=== PATIENT | male | born 1990 | race Two or more races ===

== ENCOUNTER 2021-02-04 13:14 | Emergency (ER) | payer MEDICAID ==
[~2021-02-04] VITALS: Ht 172.7 cm; Wt 104.5 kg
[2021-02-04] MEDS: IBUPROFEN 600 MG TABLET PO ONE (16:01)
[2021-02-04] MEDS: COLCHICINE 0.6 MG TABLET PO ONE (16:01)
[2021-02-04] MEDS: POVIDONE-IODINE 10% 120 ML SOLUTION TP ONE (16:02)
[2021-02-04] MEDS: BUPIVACAINE HCL/PF 0.25% 10 ML VIAL SQ ONE (16:02)
[2021-02-04 16:07] LABS: BASOPHILS % (AUTO) 1.1 % (0.0-2.0); EOSINOPHILS % (AUTO) 0.6 % (1.0-6.0); HEMATOCRIT 40.5 % (41-53); HEMOGLOBIN 13.8 g/dL (13.5-17.5); LYMPHOCYTES # (AUTO) 1.1 K/uL (1.0-4.8); LYMPHOCYTES % (AUTO) 15.6 % (22.0-44.0); MEAN CORPUSCULAR HEMOGLOBIN 30.1 pg (26.0-34.0); MEAN CORPUSCULAR HGB CONC 34.2 G/dL (31.0-37.0); MEAN CORPUSCULAR VOLUME 88 fL (80-100); MONOCYTES # (AUTO) 0.8 K/uL (0.1-1.0); MONOCYTES % (AUTO) 11.9 % (2.0-9.0); NEUTROPHILS % (AUTO) 70.8 % (40.0-70.0); PLATELET COUNT (AUTO) 189 K/uL (150-450); RED BLOOD CELL COUNT(AUTO) 4.59 MIL/uL (4.50-5.90); RED CELL DISTRIBUTION WIDTH 12.9 % (11.5-14.5)
[2021-02-04 16:13] LABS: ANION GAP 9 mmol/L (8-16); CALCIUM, TOTAL 9.1 mg/dL (8.8-10.5); CARBON DIOXIDE 26 mmol/L (22-29); CHLORIDE 100 mmol/L (98-107); CREATININE 1.21 mg/dL (0.60-1.30); GLOMERULAR FILTR. RATE CALC > 60 mL/min (>60); GLUCOSE,RANDOM 104 mg/dL (70-110); SODIUM SERUM 135 mmol/L (136-145); UREA NITROGEN, BLOOD 9 mg/dL (7-18)
[2021-02-04 16:19] LABS: ALANINE AMINOTRANSFERASE 61 U/L (12-78); ALBUMIN 3.6 g/dL (3.4-5.0); ALKALINE PHOSPHATASE 82 U/L (46-116); ASPARTATE AMINOTRANSFERASE 15 U/L (15-37); BILIRUBIN,TOTAL 1.2 mg/dL (0.1-1.0); C-REACTIVE PROTEIN QUANT 7.22 mg/dL (0.00-0.30)
[2021-02-04 16:28] LABS: SPECIMENTYPE,BODY FLUID SYNOVIAL
[2021-02-04 16:33] LABS: TOTAL PROTEIN, SERUM 7.6 g/dL (6.4-8.2)
[2021-02-04 17:21] LABS: ERYTHROCYTE SEDIMENTATION RATE 44 MM/HR (0-15)
[2021-02-04 17:27] LABS: APPEARANCE,SPUN,BODY FLUID CLEAR (CLEAR); APPEARANCE,UNSPUN,BODY FLUID CLOUDY (CLEAR); COLOR,BODY FLUID YELLOW (LT YELLOW)
[2021-02-04 17:28] LABS: LYMPHOCYTES,BODY FLUID 4 %; MONOCYTES,BODY FLUID 6 %; NEUTROPHILS,BODY FLUID 90 %; TOTAL VOLUME,BODY FLUID 10 mL; WBC, BODY FLUID 2447.5 /cu. mm.
[2021-02-04 17:56] LABS: CRYSTALS, SYNOVIAL FLUID None Seen (None Seen)
[2021-02-04 18:15] VITALS: BP 152/72
[2021-02-04] MEDS: HYDROCODONE/ACETAMINOPHEN 5-325 MG TABLET PO ONE (18:39)
== END 2021-02-04 19:40 | disposition home or self-care (01) ==
LOC: EMS 13:14
DX: M10.9 Gout, unspecified (principal); M25.461 Effusion, right knee; M25.471 Effusion, right ankle
CPT/HCPCS: 20610; 36415; 73562; 73610; 80053; 85025; 85651; 86140; 87070; 87205; 89051; 89060; 93971; 99285; J3490